=== PATIENT | female | born 1985 | race African-American/Black ===

== ENCOUNTER 2019-07-26 00:10 | Emergency (ER) | payer MEDICAID ==
[~2019-07-26] VITALS: Ht 170.2 cm; Wt 112.5 kg
[2019-07-26 00:28] VITALS: BP 149/87
[2019-07-26 01:06] LABS: Basophils # (auto) 0 10 ^3/uL (0-0.2); Basophils % (auto) 0.1 % (0.0-2.0); Eosinophils # (auto) 0 10 ^3/uL (0-0.8); Eosinophils % (auto) 0.4 % (0.0-7.0); Hematocrit 42.9 % (36.0-46.0); Hemoglobin 14.2 g/dL (12.2-16.2); Lymphocytes # (auto) 0.7 10 ^3/uL (0.4-5.4); Lymphocytes % (auto) 7.4 % (10.0-50.0); Mean Corpuscular Hemoglobin 30.5 pg (28.0-32.0); Mean Corpuscular Volume 92.2 fL (80.0-100.0); Monocytes # (auto) 0.3 10 ^3/uL (0-1.3); Neutrophils # (auto) 8.2 10 ^3/uL (1.6-8.6); Neutrophils % (auto) 89.1 % (37.0-80.0); Platelet Count (auto) 252 10^3/uL (140-450); Red Blood Cells 4.65 10^6/uL (4.0-5.20); Red Cell Distribution Width 15.3 % (11.8-14.3); White Blood Cell 9.2 10^3/uL (4.4-10.8)
[2019-07-26 01:17] LABS: Urine Bacteria FEW /hpf (None Seen); Urine Blood Negative /uL (Negative); Urine Specific Gravity 1.032 (1.001-1.035); Urine WBC 22 /hpf (0 - 5)
[2019-07-26 01:25] LABS: Albumin 3.6 g/dL (3.4-5.0); Calcium 8.6 mg/dL (8.5-10.1)
[2019-07-26 01:28] LABS: Bilirubin, Total 0.6 mg/dL (0.2-1.0); Total Protein 7.5 g/dL (6.4-8.2)
== END 2019-07-26 05:14 | disposition left against medical advice (07) ==
LOC: ER 00:23
DX: R11.2 Nausea with vomiting, unspecified (principal); R05 Cough; R09.81 Nasal congestion; Z53.21 Procedure and treatment not carried out due to patient leaving prior to being seen by health care provider
CPT/HCPCS: 36415; 80053; 81001; 85025